=== PATIENT | male | born 1950 | race Caucasian/White ===

== ENCOUNTER 2016-10-11 10:30 | Emergency (ER) | payer MEDICARE, MEDICAID ==
[~2016-10-11] VITALS: Ht 180.3 cm; Wt 85.3 kg
[~2016-10-11 10:30] MED LIST: AMLO10TA2 PO; ASPI325T4 PO; CARV3.12 PO; HYDR12.53 PO; LISI40TA PO; METO25TA4 PO; PRED-220 PO; SIMV40TA3 PO; WARF5TAB7 PO
[2016-10-11] MEDS ORDERED: ALBUTEROL SULFATE 2.5 MG/3 ML NEBU. NEB ONE (11:15)
--- NOTE | 2016-10-11 11:19 | PHYS DOC ---
Past Medical History Past Medical History: CAD, Heart Disease, Hypertension, Stroke, Other Additional Past Medical Histor: HEP C+ Past Surgical History: Other Additional Past Surgical Histo: BYPASS X5, STENT PLACEMENT X3 Alcohol Use: Occasionally Drug Use: None Adult General Chief Complaint Chief Complaint: FLU SYMPTOM HPI HPI Patient is a 66 year old male presents emergency department stating that he's been having shortness of air difficulty breathing for the last 3-4 days. He does state when he gets up and ambulates that he does have increased shortness of air. Patient does state that he's been exposed to one of the influenza is. He denies a productive cough. He does state he has an inhaler at home which she' s been using but he thinks that it's . Patient also has a history of a blood pressure which she is not taking his medications for at least last 2-3 days. His blood pressure is elevated at the current time of 188/122. Patient denies any lower extremity edema. Patient does have a history of CABG 5. Patient is noncompliant. Review of Systems Review of Systems Constitutional: Denies fever or chills [] Eyes: Denies change in visual acuity, redness, or eye pain [] HENT: Denies nasal congestion or sore throat [] Respiratory: Cough with SOA at rest Cardiovascular: No additional information not addressed in HPI [] GI: Denies abdominal pain, nausea, vomiting, bloody stools or diarrhea [] : Denies dysuria or hematuria [] Musculoskeletal: Denies back pain or joint pain [] Integument: Denies rash or skin lesions [] Neurologic: Denies headache, focal weakness or sensory changes [] Current Medications Current Medications Current Medications Medications (Trade) Dose Ordered Sig/Macy Start Time Stop Time Status Last Admin Dose Admin Albuterol Sulfate (Ventolin Neb Soln) 2.5 mg 1X ONCE 10/11/16 11:15 10/11/16 11:16 DC 10/11/16 11:22 2.5 MG Carvedilol (Coreg) 3.125 mg 1X ONCE 10/11/16 12:15 10/11/16 12:16 DC 10/11/16 12:16 3.125 MG Furosemide (Lasix) 20 mg 1X ONCE 10/11/16 13:30 10/11/16 13:31 DC 10/11/16 13:42 20 MG Hydrochlorothiazide (Microzide) 12.5 mg 1X ONCE 10/11/16 12:15 10/11/16 12:16 DC 10/11/16 12:16 12.5 MG Allergies Allergies Allergies Coded Allergies Type Severity Reaction Last Updated Verified Interferons Allergy Intermediate PASSED OUT 03/18/15 Yes Physical Exam Physical Exam Constitutional: Well developed, well nourished, no acute distress, non-toxic appearance. [] HENT: Normocephalic, atraumatic, bilateral external ears normal, oropharynx moist, no oral exudates, nose normal. [] Eyes: PERRLA, EOMI, conjunctiva normal, no discharge. [] Neck: Normal range of motion, no tenderness, supple, no stridor. [] Cardiovascular:Heart rate regular rhythm, no murmur [] Lungs & Thorax: Bilateral breath sounds with wheezes noted in the left lower lobe Skin: Warm, dry, no erythema, no rash. [] Back: No tenderness Extremities: No tenderness, no cyanosis, no clubbing, ROM intact, no edema. [] Neurologic: Alert and oriented X 3, normal motor function, normal sensory function, no focal deficits noted. [] Psychologic: Affect normal, judgement normal, mood normal. [] Current Patient Data Vital Signs Vital Signs Date Time Temp Pulse Resp B/P Pulse Ox O2 Delivery O2 Flow Rate FiO2 10/11/16 13:30 104 20 161/89 99 Room Air 10/11/16 10:41 97.7 97.7 Lab Values Laboratory Tests Test 10/11/16 11:09 10/11/16 11:23 Influenza Type A Antigen Negative (NEGATIVE) Influenza Type B Antigen Negative (NEGATIVE) White Blood Count 6.8x10^3/uL (4.0-11.0) Red Blood Count 4.22x10^6/uL (4.30-5.70) L Hemoglobin 13.0g/dL (13.0-17.5) Hematocrit 39.7% (39.0-53.0) Mean Corpuscular Volume 94fL (79-100) Mean Corpuscular Hemoglobin 31pg (25-35) Mean Corpuscular Hemoglobin Concent 33g/dL (31-37) Red Cell Distribution Width 14.5% (11.5-14.5) Platelet Count 191x10^3/uL (140-400) Neutrophils (%) (Auto) 74% (31-73) H Lymphocytes (%) (Auto) 18% (24-48) L Monocytes (%) (Auto) 6% (0-9) Eosinophils (%) (Auto) 1% (0-3) Basophils (%) (Auto) 1% (0-3) Neutrophils # (Auto) 5.1x10^3uL (1.8-7.7) Lymphocytes # (Auto) 1.2x10^3/uL (1.0-4.8) Monocytes # (Auto) 0.4x10^3/uL (0.0-1.1) Eosinophils # (Auto) 0.1x10^3/uL (0.0-0.7) Basophils # (Auto) 0.1x10^3/uL (0.0-0.2) Sodium Level 143mmol/L (136-145) Potassium Level 3.7mmol/L (3.5-5.1) Chloride Level 108mmol/L (98-107) H Carbon Dioxide Level 24mmol/L (21-32) Anion Gap 11 (6-14) Blood Urea Nitrogen 15mg/dL (8-26) Creatinine 1.2mg/dL (0.7-1.3) Estimated GFR (Cockcroft-Gault) 61.0 BUN/Creatinine Ratio 13 (6-20) Glucose Level 145mg/dL (70-99) H Calcium Level 8.9mg/dL (8.5-10.1) Total Bilirubin 0.7mg/dL (0.2-1.0) Aspartate Amino Transferase (AST) 24U/L (15-37) Alanine Aminotransferase (ALT) 27U/L (16-63) Alkaline Phosphatase 81U/L (46-116) Troponin I Quantitative 0.051ng/mL (0.000-0.055) VB-Qnk-W-Type Natriuretic Peptide 14029zs/mL (0-124) H Total Protein 7.5g/dL (6.4-8.2) Albumin 3.6g/dL (3.4-5.0) Albumin/Globulin Ratio 0.9 (1.0-1.7) L Laboratory Tests 10/11/16 11:23 Laboratory Tests 10/11/16 11:23 EKG EKG EKG completed at 1044 with regular rhythm noted no STEMI noted Dr Wiggins[] Radiology/Procedures Radiology/Procedures [] [facility] [address] [place] [address] IMAGING REPORT Signed PATIENT: EVELYNE GRAJEDA ACCOUNT: [id number] : 1950 LOCATION: ER AGE: 66 SEX: M EXAM STATUS: REG ER ORD. PHYSICIAN: RAMESH SEYMOUR NP REASON: SOA time 3-4 days. PROCEDURE: CHEST PA & LATERAL Examination: 2 views of the chest History: History of shortness of breath Comparison: 03/17/2015 Findings: Median sternotomy wires are unchanged. Mild cardiomegaly. Small left pleural effusion is identified. Mild prominent appearing bilateral interstitial lung markings likely mild congestive changes. Impression: 1. Mild congestive changes. 2. Small left pleural effusion. DICTATED and SIGNED BY: DANIELA DAVIS MD DATE: 10/11/161218 CC: RAMESH SEYMOUR MILLING MACHINE OPERATOR; UNKNOWN PCP NAME ~ Course & Med Decision Making Course & Med Decision Making Pertinent Labs and Imaging studies reviewed. (See chart for details) Report was given to Dr. Wiggins who assumed care at 1150am with labs pending, respiratory treatment pending and cxr pending. I assumed care of this patient, his examination history are consistent with a CHF exacerbation, he states that his previous echo revealed an ejection fraction approximately 35%. Patient's chest x-ray reveals evidence of cephalization and pulmonary edema, patient's proBNP is greater than 10,000. Patient is atrial fibrillation, heart rate between the 80s to the 1 teens, is denying shortness of breath at rest, but is experiencing shortness of breath with activity. Blood pressure was elevated, patient was given his home medications, carvedilol and hydrochlorothiazide, obtained from the pharmacy. Blood pressure did improve. Patient states he's been noncompliant with medications the past 2-3 weeks, states that under no circumstances will he be willing to stay in the hospital. I discussed in detail and at length with patient at bedside along with his family, that he is exhibiting signs of decompensated heart failure, and that as it has been several years since he had a cardiac evaluation, and has been noncompliant with medications, and is not currently on any diuretics, that he would be best served by being admitted to the hospital, for diuresis and cardiac evaluation, due to the degree of his dyspnea and exertion. Patient states that he understands, but he does not want to stay, as he "hates hospitals". I discussed that he could be risking increasing morbidity or even morbidity by declining admission hospital this time. Patient voices understanding. He received an ambulatory trial in the ED, at that time oxygen saturation was in the mid 90s, heart rate again was fluctuating between the 80s to the 1 teens, patient discontinued the trial, and stated that he was ready to go home. Patient had been ambulating without difficulty, he is alert, oriented, cooperative and appropriate in his questioning and answering. He has family with him at bedside, states that she will ensure that he takes the medications as directed. He states that [place] [facility] [place] fundraising manager with whom he has followed previously, will be older do this on Thursday. Family states that they will ensure this is done. Patient states he'll return to the emergency department if his symptoms worsen. He was given a first dose of Lasix 20 mg orally in the ED, along with a blood pressure medications as stated, with improvement of his blood pressure. He was also given protrusion for Lasix, carvedilol, hydrochlorothiazide, and potassium. Along with medication precautions, instructions, and clear and detailed instructions, he then signed out AGAINST MEDICAL ADVICE and exited the emergency department with his family. [] Dragon Disclaimer Dragon Disclaimer This electronic medical record was generated, in whole or in part, using a voice recognition dictation system. Departure Disposition: AGAINST MEDICAL ADVICE Condition: STABLE Referrals: HATTIE BETH (PCP) Scripts Potassium Chloride 10 Meq Capsule.er10 Meq PO DAILY #15 TAB.SR Prov:YVROSE WIGGINS DO 10/11/16 Furosemide (Lasix)20 Mg Tablet1 Tab PO DAILY #15 TAB Ref 0 Prov:YVROSE WIGGINS DO 10/11/16 Hydrochlorothiazide (Hydrochlorothiazide Tablet)12.5 Mg Tablet1 Tab PO DAILY # 15 TAB Ref 0 Prov:YVROSE WIGGINS DO 3/4/17 Carvedilol 3.125 Mg Tablet1 Tab PO BID #30 TAB Ref 0 Prov:YVROSE WIGGINS DO 10/11/16 Departure Departure Disposition: AGAINST MEDICAL ADVICE Condition: STABLE Referrals: HATTIE BETH (PCP) Scripts Potassium Chloride 10 Meq Capsule.er10 Meq PO DAILY #15 TAB.SR Prov:YVROSE WIGGINS DO 10/11/16 Furosemide (Lasix)20 Mg Tablet1 Tab PO DAILY #15 TAB Ref 0 Prov:YVROSE WIGGINS DO 10/11/16 Hydrochlorothiazide (Hydrochlorothiazide Tablet)12.5 Mg Tablet1 Tab PO DAILY # 15 TAB Ref 0 Prov:YVROSE WIGGINS DO 10/11/16 Carvedilol 3.125 Mg Tablet1 Tab PO BID #30 TAB Ref 0 Prov:FELICIANOYOMI ZAFARIN Mandi DO 10/11/16 RAMESH SEYMOUR NP Oct 11, 2016 11:19 YVROSE WIGGINS DO Oct 11, 2016 16:36
[2016-10-11 11:30] LABS: BASO # 0.1 x10^3/uL (0.0-0.2); BASO % 1 % (0-3); EOS % 1 % (0-3); HEMATOCRIT 39.7 % (39.0-53.0); LYMPH # 1.2 x10^3/uL (1.0-4.8); LYMPH % 18 % (24-48); MEAN CORPUSCULAR HEMOGLOBIN 31 pg (25-35); MEAN CORPUSCULAR HGB CONC 33 g/dL (31-37); MEAN CORPUSCULAR VOLUME 94 fL (79-100); MONO % 6 % (0-9); NEUT % 74 % (31-73); PLATELET COUNT 191 x10^3/uL (140-400); RED BLOOD COUNT 4.22 x10^6/uL (4.30-5.70); RED CELL DISTRIBUTION WIDTH 14.5 % (11.5-14.5); WHITE BLOOD COUNT 6.8 x10^3/uL (4.0-11.0)
[2016-10-11 11:38] LABS: OBC FLU VALID
[2016-10-11 11:42] LABS: CALCIUM 8.9 mg/dL (8.5-10.1); CREATININE 1.2 mg/dL (0.7-1.3); POTASSIUM 3.7 mmol/L (3.5-5.1)
--- NOTE | 2016-10-11 11:42 | EKG ---
[facility] [address] [place] [address] Test Date: 2016-10-11 Test Time: 10:44:13 Pat Name: EVELYNE GRAJEDA Department: Room: Gender: M Car Rental Agent: : 1950 Requested By: RAMESH SEYMOUR Order Number: [id number] Reading MD: Blair Gutierrez Measurements Intervals [place] Rate: 106 P: [place]: QRS: -5 QRSD: 102 T: 108 QT: 370 QTc: 493 Interpretive Statements SINUS RHYTHM, FREQUENT PACS AND ATRIAL TRIPLETS VENTRICULAR PREMATURE COMPLEX(ES) LEFTWARD AXIS R-S TRANSITION ZONE IN V LEADS DISPLACED TO THE LEFT CONSIDER LEFT VENTRICULAR HYPERTROPHY T ABNORMALITY IN HIGH LATERAL LEADS RI6.01 Unconfirmed report Electronically Signed On 10-12-2016 9:42:25 NEWS REEL CAMERAMAN by Blair Gutierrez
[2016-10-11 11:48] LABS: ALBUMIN 3.6 g/dL (3.4-5.0); ALBUMIN/GLOBULIN RATIO 0.9 (1.0-1.7); TOTAL BILIRUBIN 0.7 mg/dL (0.2-1.0); TOTAL PROTEIN 7.5 g/dL (6.4-8.2)
[2016-10-11] MEDS ORDERED: AMLO10TA2 PO (11:59)
[2016-10-11] MEDS ORDERED: ATOR10TA60 PO (11:59)
[2016-10-11] MEDS ORDERED: CARVEDILOL 3.125 MG TABLET PO ONE (12:15)
[2016-10-11] MEDS ORDERED: HYDROCHLOROTHIAZIDE 12.5 MG CAPSULE. PO ONE (12:15)
--- NOTE | 2016-10-11 12:23 | RAD ---
Examination: 2 views of the chest History: History of shortness of breath Comparison: 03/17/2015 Findings: Median sternotomy wires are unchanged. Mild cardiomegaly. Small left pleural effusion is identified. Mild prominent appearing bilateral interstitial lung markings likely mild congestive changes. Impression: 1. Mild congestive changes. 2. Small left pleural effusion.
[2016-10-11 13:30] VITALS: BP 161/89
[2016-10-11] MEDS ORDERED: FUROSEMIDE 40 MG TABLET PO ONE (13:30)
[2016-10-11] MEDS ORDERED: POTA10CA PO (13:37)
[2016-10-11] MEDS ORDERED: FURO-69 PO (13:37)
[2016-10-11] MEDS ORDERED: HYDR12.58 PO (13:37)
[2016-10-11] MEDS ORDERED: CARV3.122 PO (13:37)
== END 2016-10-11 13:54 | disposition left against medical advice (07) ==
LOC: ER 10:30
DX: R06.2 Wheezing (principal); J90 Pleural effusion, not elsewhere classified; Z91.14 Patient's other noncompliance with medication regimen; R06.02 Shortness of breath; R05 Cough; R06.00 Dyspnea, unspecified; I48.91 Unspecified atrial fibrillation; I11.9 Hypertensive heart disease without heart failure; I25.10 Atherosclerotic heart disease of native coronary artery without angina pectoris; Z86.73 Personal history of transient ischemic attack (TIA), and cerebral infarction without residual deficits; Z95.1 Presence of aortocoronary bypass graft; Z86.19 Personal history of other infectious and parasitic diseases; Z88.8 Allergy status to other drugs, medicaments and biological substances
CPT/HCPCS: 36415; 71020; 80053; 83880; 84484; 85027; 87804; 93005; 94640; 99285-25

== ENCOUNTER 2018-11-02 14:01 | Emergency (ER) | payer MEDICARE, MEDICAID ==
[~2018-11-02] VITALS: Ht 180.3 cm; Wt 82.8 kg
[~2018-11-02 14:01] MED LIST changes: -AMLO10TA2 PO; +AMLO10TA8 PO; -ASPI325T4 PO; +ASPI325T8 PO; +ATOR10TA60 PO; +CARV3.1210 PO; +FURO-69 PO; -HYDR12.53 PO; +HYDR12.575 PO; +HYDR12.58 PO; +LISI-130 PO; -LISI40TA PO; +POTA10TA12 PO; +WARF-31 PO; -WARF5TAB7 PO
[2018-11-02] MEDS ORDERED: ALBUTEROL SULFATE 2.5 MG/3 ML NEBU. NEB ONE (14:45)
[2018-11-02] MEDS ORDERED: predniSONE 10 MG TABLET PO ONE (14:45)
--- NOTE | 2018-11-02 15:09 | RAD ---
Chest radiograph 11/02/2018 2:47 PM INDICATION: Shortness of air, coughing COMPARISON: October 11, 2016 TECHNIQUE: Frontal and lateral views of the chest are provided. FINDINGS: The cardiomediastinal silhouette is enlarged, stable. Median sternotomy changes are present. There is subtle increased patchy density within the right middle lobe. No pleural effusions. No pulmonary vascular congestion or pneumothorax. Mild bronchial wall thickening as may be seen with bronchitis. IMPRESSION: Suspect bronchitis with patchy density in the right middle lobe suspicious for pulmonary infiltrate. Electronically signed by: Digna Bautista MD (11/02/2018 3:07 PM) [facility]
[2018-11-02 15:28] LABS: BASO # 0.1 x10^3/uL (0.0-0.2); BASO % 1 % (0-3); EOS % 0 % (0-3); HEMATOCRIT 41.2 % (39.0-53.0); HEMOGLOBIN 13.8 g/dL (13.0-17.5); LYMPH # 1.5 x10^3/uL (1.0-4.8); LYMPH % 13 % (24-48); MEAN CORPUSCULAR HEMOGLOBIN 31 pg (25-35); MEAN CORPUSCULAR HGB CONC 34 g/dL (31-37); MEAN CORPUSCULAR VOLUME 93 fL (79-100); MONO # 0.8 x10^3/uL (0.0-1.1); MONO % 7 % (0-9); NEUT % 79 % (31-73); PLATELET COUNT 198 x10^3/uL (140-400); RED BLOOD COUNT 4.41 x10^6/uL (4.30-5.70); RED CELL DISTRIBUTION WIDTH 14.7 % (11.5-14.5); WHITE BLOOD COUNT 11.4 x10^3/uL (4.0-11.0)
[2018-11-02 15:42] LABS: CALCIUM 8.9 mg/dL (8.5-10.1); CREATININE 1.3 mg/dL (0.7-1.3); GFR 55.2; POTASSIUM 3.8 mmol/L (3.5-5.1)
[2018-11-02 15:46] LABS: ALBUMIN 3.7 g/dL (3.4-5.0); ALBUMIN/GLOBULIN RATIO 0.8 (1.0-1.7); TOTAL BILIRUBIN 1.6 mg/dL (0.2-1.0); TOTAL PROTEIN 8.2 g/dL (6.4-8.2)
[2018-11-02 15:49] VITALS: BP 204/100
[2018-11-02] MEDS ORDERED: PRED50TA PO (16:18)
[2018-11-02] MEDS ORDERED: AZIT250T PO (16:18)
--- NOTE | 2018-11-02 16:19 | PHYS DOC ---
Past Medical History Past Medical History: CAD, COPD, CVA, High Cholesterol, Heart Disease, Hypertension, Hepatitis, [place], Stroke, Other Additional Past Medical Histor: HEP C+, PSORIASIS Past Surgical History: Appendectomy, Coronary Bypass Surgery, Other Additional Past Surgical Histo: BYPASS X5, STENT PLACEMENT X3, hernia surgery Additional Information: 1PPD Alcohol Use: Sober Additional Information: SOBER X 3 YEARS Drug Use: None Adult General Chief Complaint Chief Complaint: Congestion HPI HPI Patient is a 68 year old male who presents with shortness of air, coughing and fatigue. The patient does have a positive history of COPD. His daughter states that he has been worsening over the past few days. He denies diaphoresis, chest pain, body aches or fever. He has been using his at home inhaler with little relief. Review of Systems Review of Systems Constitutional: Denies fever or chills [] Eyes: Denies change in visual acuity, redness, or eye pain [] HENT: Denies nasal congestion or sore throat [] Respiratory: See history of present illness Cardiovascular: No additional information not addressed in HPI [] GI: Denies abdominal pain, nausea, vomiting, bloody stools or diarrhea [] : Denies dysuria or hematuria [] Musculoskeletal: Denies back pain or joint pain [] Integument: Denies rash or skin lesions [] Neurologic: Denies headache, focal weakness or sensory changes [] Endocrine: Denies polyuria or polydipsia [] All other systems were reviewed and found to be within normal limits, except as documented in this note. Current Medications Current Medications Current Medications Medications (Trade) Dose Ordered Sig/Macy Start Time Stop Time Status Last Admin Dose Admin Albuterol Sulfate (Ventolin Neb Soln) 2.5 mg 1X ONCE 11/02/18 14:45 11/02/18 14:47 DC 11/02/18 15:17 2.5 MG Prednisone (Prednisone) 50 mg 1X ONCE 11/02/18 14:45 11/02/18 14:47 DC 11/02/18 15:19 50 MG Allergies Allergies Allergies Coded Allergies Type Severity Reaction Last Updated Verified Interferons Allergy Intermediate PASSED OUT 03/18/15 Yes Physical Exam Physical Exam Constitutional: Well developed, well nourished, no acute distress, non-toxic appearance. [] HENT: Normocephalic, atraumatic, bilateral external ears normal, oropharynx moist, no oral exudates, nose normal. [] Eyes: PERRLA, EOMI, conjunctiva normal, no discharge. [] Neck: Normal range of motion, no tenderness, supple, no stridor. [] Cardiovascular:Heart rate regular rhythm, no murmur [] Lungs & Thorax: Bilateral breath sounds decreased bilaterally Abdomen: Bowel sounds normal, soft, no tenderness, no masses, no pulsatile masses. [] Skin: Warm, dry, no erythema, no rash. [] Back: No tenderness, no CVA tenderness. [] Extremities: No tenderness, no cyanosis, no clubbing, ROM intact, no edema. [] Neurologic: Alert and oriented X 3, normal motor function, normal sensory function, no focal deficits noted. [] Psychologic: Affect normal, judgement normal, mood normal. [] Current Patient Data Vital Signs Vital Signs Date Time Temp Pulse Resp B/P (MAP) Pulse Ox O2 Delivery O2 Flow Rate FiO2 11/02/18 15:49 112 204/100 (134) 99 Room Air 11/02/18 15:35 26 11/02/18 14:31 98.3 98.3 Lab Values Laboratory Tests Test 11/02/18 15:10 11/02/18 15:37 White Blood Count 11.4 x10^3/uL (4.0-11.0) H Red Blood Count 4.41 x10^6/uL (4.30-5.70) Hemoglobin 13.8 g/dL (13.0-17.5) Hematocrit 41.2 % (39.0-53.0) Mean Corpuscular Volume 93 fL (79-100) Mean Corpuscular Hemoglobin 31 pg (25-35) Mean Corpuscular Hemoglobin Concent 34 g/dL (31-37) Red Cell Distribution Width 14.7 % (11.5-14.5) H Platelet Count 198 x10^3/uL (140-400) Neutrophils (%) (Auto) 79 % (31-73) H Lymphocytes (%) (Auto) 13 % (24-48) L Monocytes (%) (Auto) 7 % (0-9) Eosinophils (%) (Auto) 0 % (0-3) Basophils (%) (Auto) 1 % (0-3) Neutrophils # (Auto) 9.0 x10^3uL (1.8-7.7) H Lymphocytes # (Auto) 1.5 x10^3/uL (1.0-4.8) Monocytes # (Auto) 0.8 x10^3/uL (0.0-1.1) Eosinophils # (Auto) 0.0 x10^3/uL (0.0-0.7) Basophils # (Auto) 0.1 x10^3/uL (0.0-0.2) Sodium Level 141 mmol/L (136-145) Potassium Level 3.8 mmol/L (3.5-5.1) Chloride Level 104 mmol/L (98-107) Carbon Dioxide Level 28 mmol/L (21-32) Anion Gap 9 (6-14) Blood Urea Nitrogen 14 mg/dL (8-26) Creatinine 1.3 mg/dL (0.7-1.3) Estimated GFR (Cockcroft-Gault) 55.2 BUN/Creatinine Ratio 11 (6-20) Glucose Level 104 mg/dL (70-99) H Calcium Level 8.9 mg/dL (8.5-10.1) Total Bilirubin 1.6 mg/dL (0.2-1.0) H Aspartate Amino Transferase (AST) 17 U/L (15-37) Alanine Aminotransferase (ALT) 20 U/L (16-63) Alkaline Phosphatase 69 U/L (46-116) Total Protein 8.2 g/dL (6.4-8.2) Albumin 3.7 g/dL (3.4-5.0) Albumin/Globulin Ratio 0.8 (1.0-1.7) L Lactic Acid Level 1.0 mmol/L (0.4-2.0) Laboratory Tests 11/02/18 15:10 Laboratory Tests 11/02/18 15:10 Microbiology 11/02/18 Blood Culture - Preliminary, Resulted NO GROWTH AFTER 3 DAYS EKG EKG [] Radiology/Procedures Radiology/Procedures []PATIENT: EVELYNE GRAJEDAACCOUNT: [id number]#: [id number] : 1950 LOCATION: ER AGE: 68 SEX: M EXAM STATUS: REG ER ORD. PHYSICIAN: GRINT,TBA M UMBRELLA TIPPER HAND REASON: soa, coughing PROCEDURE: CHEST PA & LATERAL Chest radiograph 11/02/2018 2:47 PM INDICATION: Shortness of air, coughing COMPARISON: October 11, 2016 TECHNIQUE: Frontal and lateral views of the chest are provided. FINDINGS: The cardiomediastinal silhouette is enlarged, stable. Median sternotomy changes are present. There is subtle increased patchy density within the right middle lobe. No pleural effusions. No pulmonary vascular congestion or pneumothorax. Mild bronchial wall thickening as may be seen with bronchitis. IMPRESSION: Suspect bronchitis with patchy density in the right middle lobe suspicious for pulmonary infiltrate. Electronically signed by: Ry Bautista MD (11/02/2018 3:07 PM) [facility] DICTATED and SIGNED BY: RY BAUTISTA MD DATE: 11/02/18 5585 Course & Med Decision Making Course & Med Decision Making Pertinent Labs and Imaging studies reviewed. (See chart for details) []The patient was given prednisone and an albuterol nebulizer treatment in the emergency department. He states that he feels much better following the treatment. Dragon Disclaimer Dragon Disclaimer This electronic medical record was generated, in whole or in part, using a voice recognition dictation system. Departure Departure Impression: Primary Impression: Pneumonia Disposition: 01 HOME, SELF-CARE Condition: STABLE Referrals: NO PCP (PCP) Patient Instructions: Pneumonia, Adult Additional Instructions: Take the medication as directed. Follow-up with your primary care provider in 3 days if not improving or return to the emergency department immediately if worsening. Scripts Azithromycin (ZITHROMAX) 250 Mg Tablet 1 PKG PO UD for pneumonia, #1 PKG Prov: TAB MENDOZA UMBRELLA TIPPER HAND 11/02/18 Prednisone (PREDNISONE) 50 Mg Tablet 1 TAB PO DAILY for pneumonia, #5 TAB Prov: TAB MENDOZA UMBRELLA TIPPER HAND 11/02/18 TAB MENDOZA APRN Nov 02, 2018 16:19
--- NOTE | 2018-11-03 04:17 | EKG ---
[facility] [address] [place] [address] Test Date: 2018-11-02 Test Time: 14:53:01 Pat Name: EVELYNE GRAJEDA Department: Room: Gender: M Medical Receptionist Medical Assistant: : 1950 Requested By: TAB MENDOZA Order Number: [id number] Reading MD: Jon Todd MD Measurements Intervals [place] Rate: 93 P: 3 SC: 190 QRS: -12 QRSD: 104 T: 126 QT: 334 QTc: 418 Interpretive Statements SINUS RHYTHM ATRIAL PREMATURE COMPLEX(ES) LEFTWARD AXIS LVH WITH REPOLARIZATION ABNORMALITY Electronically Signed On 11-04-2018 14:42:04 CDT by Jon Todd MD
== END 2018-11-02 16:28 | disposition home or self-care (01) ==
LOC: ER 14:01
DX: J18.9 Pneumonia, unspecified organism (principal); R53.83 Other fatigue; J44.9 Chronic obstructive pulmonary disease, unspecified; E78.00 Pure hypercholesterolemia, unspecified; I11.9 Hypertensive heart disease without heart failure; F17.200 Nicotine dependence, unspecified, uncomplicated; I25.10 Atherosclerotic heart disease of native coronary artery without angina pectoris; I25.2 Old myocardial infarction; Z86.73 Personal history of transient ischemic attack (TIA), and cerebral infarction without residual deficits; Z90.89 Acquired absence of other organs; Z95.1 Presence of aortocoronary bypass graft
CPT/HCPCS: 36415; 71046; 80053; 83605; 85025; 87040; 93005; 94640; 99284; J7512; J7613

== ENCOUNTER 2019-03-22 07:21 | Day surgery (SDC) | payer MEDICARE, MEDICAID ==
[~2019-03-22] VITALS: Ht 180.3 cm; Wt 81.6 kg
[~2019-03-22 07:21] MED LIST changes: +ASPI-630 PO; +AZIT250T PO; +CLOP75TA PO; +HYDROmorphone 2 MG/ML VIAL IV PRN; +IOHEXOL 300 MG/ML 50 ML VIAL. ONE; +IV RINGERS,LACTATED 1000ML 1,000 ML IV SCH; +LIDOCAINE 2% JELLY 6ML IN APPLICATOR. ONE; +MORPHINE SULFATE 2 MG/ML VIAL. IV PRN; +ONDANSETRON PF 4 MG/2 ML VIAL. IV PRN; +PRED50TA PO; +PROCHLORPERAZINE 10 MG/2 ML VIAL. IV PRN; +VENTOLIN HFA18 GM INH; +fentaNYL PF VIAL 100 MCG/2 ML VIAL IV PRN
[2019-03-22] MEDS ORDERED: PROPOFOL 0 ML IV ONE (08:43)
[2019-03-22] MEDS ORDERED: DEXAMETHASONE SOD PHOS 4 MG/ML VIAL ONE (08:43)
[2019-03-22] MEDS ORDERED: MIDAZOLAM HCL/PF 2 MG/2 ML VIAL. ONE (08:43)
[2019-03-22] MEDS ORDERED: fentaNYL PF VIAL 100 MCG/2 ML VIAL ONE ×2 (08:43→09:59)
[2019-03-22] MEDS ORDERED: ONDANSETRON PF 4 MG/2 ML VIAL. ONE (08:43)
[2019-03-22] MEDS ORDERED: LIDOCAINE 2% PF 5 ML VIAL. ONE (08:43)
[2019-03-22 08:46] LABS: BASO % 1 % (0-3); EOS # 0.1 x10^3/uL (0.0-0.7); EOS % 2 % (0-3); HEMATOCRIT 36.6 % (39.0-53.0); HEMOGLOBIN 12.7 g/dL (13.0-17.5); LYMPH % 33 % (24-48); MEAN CORPUSCULAR HEMOGLOBIN 33 pg (25-35); MEAN CORPUSCULAR HGB CONC 35 g/dL (31-37); MEAN CORPUSCULAR VOLUME 94 fL (79-100); MONO # 0.4 x10^3/uL (0.0-1.1); MONO % 7 % (0-9); NEUT # 3.4 x10^3/uL (1.8-7.7); NEUT % 57 % (31-73); PLATELET COUNT 158 x10^3/uL (140-400); RED BLOOD COUNT 3.92 x10^6/uL (4.30-5.70); RED CELL DISTRIBUTION WIDTH 14.7 % (11.5-14.5)
[2019-03-22 08:54] LABS: CALCIUM 8.6 mg/dL (8.5-10.1); CREATININE 1.4 mg/dL (0.7-1.3); GFR 50.7; POTASSIUM 3.3 mmol/L (3.5-5.1)
[2019-03-22] MEDS ORDERED: ETOMIDATE 20 MG/10 ML VIAL. IV ONE ×2 (08:56→09:30)
[2019-03-22] MEDS ORDERED: PHENYLEPHRINE in 0.9% NACL PF 1 MG/10 ML SYRINGE. IV ONE (09:30)
[2019-03-22] MEDS ORDERED: ePHEDrine PF IN SALINE 50 MG/10 ML SYRINGE. IV ONE (09:30)
[2019-03-22] MEDS ORDERED: ISOFLURANE 31 TO 60 MINUTES. IH ONE (09:30)
--- NOTE | 2019-03-22 09:38 | PDOC4 ---
OPERATIVE NOTE Date: Date: Mar 22, 2019 Pre-Op Diagnosis: Rt Uret calc Post-Op Diagnosis: same Procedure Performed: cysto, R RPG, placement of R ureteral stent Surgeon: Juan M Anesthesia Type: Gen Blood Loss: min Specimans Obtained: none Findings: mild bulb stx; enlarged but not obstructing prostate that was palpable benign, bladder showed mild trabec; UO's nl; RPG on Right showed near complete obstruction by a stone at the bottom border of S-I joint Complications: none Operative Note: Gen Anes Pt placed in lithotomy pos'n IV abx admin Pt prepped and draped in usual fashion Cysto performed w 21-Fr cystoscope. Findings as above. RPG performed with fluoro. A Zip-wire was placed under fluoro. This required mod manipulation at site of stone. A 26cm Percuflex stent was then placed over the wire in usual fashion. The stent coiled in good ps'n proximally ad distally upon removal of wire. The bladder was emptied and scope removed. MEL was performed and was unrem. The patient was then awakened and transferred to . Disp: home after RR. Will be followed per office. Will need ureteroscopy when he can be taken off some of his anti-platelet medications. Hopefully the stent will auro-dilate the ureter enough to make the stone removal easier. He will need laser for stone removal. ARIC CALLAHAN MD Mar 22, 2019 09:38
[2019-03-22] MEDS ORDERED: HYDROcodone/APAP 5/325MG 1 TAB TABLET ONE (10:11)
[2019-03-22] MEDS ORDERED: HYDROcodone/APAP 5/325MG 1 TAB TABLET PO ONE (10:15)
[2019-03-22] MEDS ORDERED: HYDR-2761 PO (10:22)
[2019-03-22 10:35] VITALS: BP 148/72
== END 2019-03-22 10:55 | disposition home or self-care (01) ==
LOC: SURG 07:21
PROVIDERS: ATTEND Urology
DX: N20.1 Calculus of ureter (principal)
CPT/HCPCS: 36415; 52332; 76000; 80048; 85025; J0171; J0690; J1100; J2001; J2250; J2370; J2405; J3010; Q9967; A7015; C1769; C2617; J2704; J7120

== ENCOUNTER → 2019-04-26 | Day surgery (SDC) | payer MEDICAID, MEDICARE ==
[~2019-04-26] VITALS: Ht 180.3 cm; Wt 81.6 kg
[~2019-04-26] MED LIST changes: +0.9 % SODIUM CHLORIDE 10 ML DISP.SYRIN. IV PRN; +DEXAMETHASONE SOD PHOS 4 MG/ML VIAL ONE; +ESMOLOL 100 MG/10 ML VIAL. IVP ONE; +ETOMIDATE 20 MG/10 ML VIAL. IV ONE; +HYDR-2761 PO; +IBUP100T PO; +ISOFLURANE 61 TO 120 MINUTES. IH ONE; +IV DEXTROSE 5 %-0.45 % NACL 1,000 ML IV SCH; +LIDOCAINE 2% PF 5 ML VIAL. ONE; +NALOXONE 0.4 MG/ML VIAL. IV PRN; +ONDANSETRON PF 4 MG/2 ML VIAL. ONE; +PHENYLEPHRINE in 0.9% NACL PF 1 MG/10 ML SYRINGE. IV ONE; +PROPOFOL 20 ML IV ONE; +ceFAZolin 2GM PREMIX 2 GM/50 ML BAG IV ONE; +fentaNYL PF VIAL 100 MCG/2 ML VIAL ONE
--- NOTE | 2019-04-26 09:56 | PDOC4 ---
OPERATIVE NOTE Date: Date: Apr 26, 2019 Pre-Op Diagnosis: R hydro, R prox ureteral calculus Post-Op Diagnosis: R hydro; no stone identified Procedure Performed: cysto, removal stent, R ureterorenoscopy, stent re-insertion w string Surgeon: Juan M Anesthesia Type: Gen Blood Loss: min Specimans Obtained: none Findings: CAtheter rxn of bladder, inflammation of R ureter, R caliectasis with no stone identified byeither rigid or flexible ureterorenoscopy Complications: none Operative Note: With patient under GA and in lithotomy position, pt was admin'd abx, prepped and draped in usual fashion Cysto was performed w 21 Fr cystoscope and stent was removed. A guidewire was placed under fluoroscopic cx. The rigid 6.9 Fr scope was then used to examine the patients ureter. There was mild narrowing at the level of the mid S-I joint which required a second wire before the scope could be passed without excessive traction of the ureter. The proximl ureter was examined and there was no stone. There was a moderate amount of debris but no stone. Despite complete relaxation of the patient, the scope would not reach the UPJ. The flexible scope was then used after removal of the rigid scope. The flexible scope was placed over the guidewire into the renal pelvis and the wire was removed. The calyces were examined and there was mod debris but no stone identified. After complete exam of the collecting system and seeing no stone or cause of obstruction, the ureteroscope was removed after re-inserting the guidewire. The 21-Fr scope was then re-intoduced and the 6 x 26 Polaris stent w string was passed over the wire under fluoro control. The pusher was removed and the bladder was emptied and scope removed. The string was taped to the penis. Final fluoro revealed the stent in good pos'n. Disp: home after RR; return for stent removal in 5 days Rx's ARIC Stover MD Apr 26, 2019 09:56
[2019-04-26 10:30] VITALS: BP 178/92
== END ==
LOC: SURG 06:46
PROVIDERS: ATTEND Urology
DX: N20.1 Calculus of ureter (principal); N40.1 Benign prostatic hyperplasia with lower urinary tract symptoms; I25.2 Old myocardial infarction
CPT/HCPCS: 52332; 76000; A7015; C1769; C2617; J0696; J1100; J2001; J2370; J2405; J2704; J3010; J3490; Q9967

== ENCOUNTER 2019-10-19 20:59 | Emergency (ER) | payer MEDICARE, MEDICAID ==
[~2019-10-19] VITALS: Ht 180.3 cm; Wt 80.0 kg
[~2019-10-19 20:59] MED LIST changes: -0.9 % SODIUM CHLORIDE 10 ML DISP.SYRIN. IV PRN; +ALBU2.5V8 IH; +BENZ100C PO; -DEXAMETHASONE SOD PHOS 4 MG/ML VIAL ONE; +DOXY100T PO; -ESMOLOL 100 MG/10 ML VIAL. IVP ONE; -ETOMIDATE 20 MG/10 ML VIAL. IV ONE; -HYDROmorphone 2 MG/ML VIAL IV PRN; -IOHEXOL 300 MG/ML 50 ML VIAL. ONE; -ISOFLURANE 61 TO 120 MINUTES. IH ONE; -IV DEXTROSE 5 %-0.45 % NACL 1,000 ML IV SCH; -IV RINGERS,LACTATED 1000ML 1,000 ML IV SCH; -LIDOCAINE 2% JELLY 6ML IN APPLICATOR. ONE; -LIDOCAINE 2% PF 5 ML VIAL. ONE; -MORPHINE SULFATE 2 MG/ML VIAL. IV PRN; -NALOXONE 0.4 MG/ML VIAL. IV PRN; -ONDANSETRON PF 4 MG/2 ML VIAL. IV PRN; -ONDANSETRON PF 4 MG/2 ML VIAL. ONE; -PHENYLEPHRINE in 0.9% NACL PF 1 MG/10 ML SYRINGE. IV ONE; -PROCHLORPERAZINE 10 MG/2 ML VIAL. IV PRN; -PROPOFOL 20 ML IV ONE; +SIMV40TA18 PO; -SIMV40TA3 PO; -ceFAZolin 2GM PREMIX 2 GM/50 ML BAG IV ONE; -fentaNYL PF VIAL 100 MCG/2 ML VIAL IV PRN; -fentaNYL PF VIAL 100 MCG/2 ML VIAL ONE
[2019-10-19] MEDS ORDERED: AZIT250T PO (22:07)
[2019-10-19] MEDS ORDERED: HYDR25TA PO (22:07)
[2019-10-19] MEDS ORDERED: METH4TAB2 PO (22:07)
--- NOTE | 2019-10-19 22:07 | PHYS DOC ---
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 Patient states he was seen in this emergency room on October 12 and diagnosed with pneumonia and treated with Tessalon, doxycycline, prednisone and albuterol inhaler. Patient had albuterol inhaler and prednisone previously without problem. Patient states he had bilateral hand redness and itching and needle sticking feeling for the last couple days and today had redness and itching in preauricular area. Patient denies shortness of breath, fever and chills, throat swelling and problems swallowing. Patient denies history of allergic reaction. Review of Systems Review of Systems Constitutional: Denies fever or chills [] Eyes: Denies change in visual acuity, redness, or eye pain [] HENT: Denies nasal congestion or sore throat [] Respiratory: Denies cough or shortness of breath [] Cardiovascular: No additional information not addressed in HPI [] GI: Denies abdominal pain, nausea, vomiting, bloody stools or diarrhea [] : Denies dysuria or hematuria [] Musculoskeletal: Denies back pain or joint pain [] Integument: Reports rash Neurologic: Denies headache, focal weakness or sensory changes [] Endocrine: Denies polyuria or polydipsia [] All other systems were reviewed and found to be within normal limits, except as documented in this note. Current Medications Current Medications Current Medications Medications (Trade) Dose Ordered Sig/Macy Start Time Stop Time Status Last Admin Dose Admin Diphenhydramine HCl (Benadryl) 50 mg 1X ONCE 10/19/19 22:15 10/19/19 22:16 DC 10/19/19 22:22 50 MG Famotidine (Pepcid) 20 mg 1X ONCE 10/19/19 22:15 10/19/19 22:16 DC 10/19/19 22:22 20 MG Allergies Allergies Allergies Coded Allergies Type Severity Reaction Last Updated Verified Interferons Allergy Intermediate PASSED OUT 04/26/19 Yes Physical Exam Physical Exam Constitutional: Well developed, well nourished, mild distress, non-toxic appearance. [] HENT: Normocephalic, atraumatic. Eyes: PERRLA, EOMI, conjunctiva normal, no discharge. [] Neck: Normal range of motion, no tenderness, supple, no stridor. [] Cardiovascular:Heart rate regular rhythm, no murmur [] Lungs & Thorax: Bilateral breath sounds clear to auscultation [] Skin: Warm, dry, erythema of bilateral dorsal sides of hands, left periauricular erythema and pruritus Back: No tenderness, no CVA tenderness. [] Extremities: No tenderness, no cyanosis, no clubbing, ROM intact, no edema. [] Neurologic: Alert and oriented X 3, no focal deficits noted. [] Psychologic: Affect normal, judgement normal, mood normal. [] Current Patient Data Vital Signs Vital Signs Date Time Temp Pulse Resp B/P (MAP) Pulse Ox O2 Delivery O2 Flow Rate FiO2 10/19/19 22:22 63 18 155/80 (105) 99 Room Air 10/19/19 21:41 97.5 97.5 EKG EKG [] Radiology/Procedures Radiology/Procedures [] Course & Med Decision Making Course & Med Decision Making Evaluation of patient he is to 69-year-old male patient with possible allergic reaction to doxycycline. Patient was advised to stop doxycycline and prescription for Zithromax was given. Patient treated with IM Benadryl and p.o. Pepcid in ER and felt better. Prescription for Medrol Dosepak and hydroxyzine was given. I've spoken with the patient and/or caregivers. I've explained the patient's condition, diagnosis and treatment plan based on information available to me at this time. I've answered the patient's and/or caregivers questions and addressed any concerns. The patient and/or caregivers have a good understanding the patient's diagnosis, condition and treatment plan as can be expected at this point. Vital signs have been stabilized. The patient's condition is stable for discharge from the emergency department. The patient will pursue further outpatient evaluation with her primary care provider or other designated consulting physician as outlined in the discharge instructions. Patient and/or caregivers are agreeable to this plan of care and follow-up instructions have been explained in detail. The patient and/or care givers have received these instructions in written format and expressed understanding of these discharge instructions. The patient and her caregivers are aware that if any significant change in condition or worsening of symptoms should prompt him to immediately return to this of the closest emergency department. If an emergent department is not readily available I would encourage him to call 911. Mary Disclaimer Mary Disclaimer This electronic medical record was generated, in whole or in part, using a voice recognition dictation system. Departure Departure Impression: Primary Impression: Allergic reaction caused by a drug Disposition: HOME, SELF-CARE (At 2220) Condition: STABLE Referrals: NO PCP (PCP) Patient Instructions: Drug Allergy Additional Instructions: Stop taking doxycycline Follow-up with your primary care physician in 3-5 days Return to ER if not getting better Thank you for visiting [facility]. We appreciate you trusting us with your care. If any additional problems come up don't hesitate to return to visit us. Please follow up with your primary care provider so they can plan additional care if needed and know about the problem that you had. If symptoms worsen come back to the Emergency Department. Any concerning symptoms that start such as chest pain, shortness of air, weakness or numbness on one side of the body, running high fevers or any other concerning symptoms return to the ER. Scripts Hydroxyzine Hcl (HYDROXYZINE HCL) 25 Mg Tablet 1 TAB PO TID PRN for itching, #30 TAB Prov: SHERLEY CASTRO MD 10/19/19 Azithromycin (ZITHROMAX) 250 Mg Tablet 250 MG PO as directed for ANTI-BIOTIC, #6 TAB 0 Refills Take 2 PO x 1 days Then take 1 PO q 24 hour for the next 4 days Prov: SHERLEY CASTRO MD 10/19/19 Methylprednisolone (MEDROL) 4 Mg Tab.ds.pk 1 PKG PO UD for inflammation, #1 PKG Prov: SHERLEY CASTRO MD 10/19/19 Problem Qualifiers Primary Impression: Allergic reaction caused by a drug Encounter type: initial encounter Qualified Codes: T78.40XA - Allergy, unspecified, initial encounter SHERLEY CASTRO MD Oct 19, 2019 22:07
[2019-10-19] MEDS ORDERED: diphenhydrAMINE 50 MG/ML VIAL IM ONE (22:15)
[2019-10-19] MEDS ORDERED: FAMOTIDINE 20 MG TABLET. PO ONE (22:15)
[2019-10-19 22:22] VITALS: BP 155/80
== END 2019-10-19 22:35 | disposition home or self-care (01) ==
LOC: ER 20:59
DX: T36.4X5A Adverse effect of tetracyclines, initial encounter (principal); E78.00 Pure hypercholesterolemia, unspecified; I11.9 Hypertensive heart disease without heart failure; I25.2 Old myocardial infarction; J44.9 Chronic obstructive pulmonary disease, unspecified; F17.200 Nicotine dependence, unspecified, uncomplicated; I25.10 Atherosclerotic heart disease of native coronary artery without angina pectoris; Z86.73 Personal history of transient ischemic attack (TIA), and cerebral infarction without residual deficits; Z95.1 Presence of aortocoronary bypass graft; Z95.5 Presence of coronary angioplasty implant and graft; Z88.8 Allergy status to other drugs, medicaments and biological substances; Y92.89 Other specified places as the place of occurrence of the external cause
CPT/HCPCS: 96372; 99283; J1200

== ENCOUNTER 2020-03-22 17:42 | Emergency (ER) | payer MEDICARE, MEDICAID ==
[~2020-03-22] VITALS: Ht 182.9 cm; Wt 75.1 kg
[~2020-03-22 17:42] MED LIST changes: +HYDR25TA PO; +METH4TAB2 PO
[2020-03-22 18:26] LABS: BASO % 0 % (0-3); EOS # 0.1 x10^3/uL (0.0-0.7); EOS % 1 % (0-3); HEMATOCRIT 43.4 % (39.0-53.0); HEMOGLOBIN 15.1 g/dL (13.0-17.5); LYMPH # 1.1 x10^3/uL (1.0-4.8); LYMPH % 15 % (24-48); MEAN CORPUSCULAR HEMOGLOBIN 33 pg (25-35); MEAN CORPUSCULAR HGB CONC 35 g/dL (31-37); MEAN CORPUSCULAR VOLUME 94 fL (79-100); MONO # 0.5 x10^3/uL (0.0-1.1); MONO % 7 % (0-9); NEUT # 5.9 x10^3/uL (1.8-7.7); NEUT % 77 % (31-73); PLATELET COUNT 171 x10^3/uL (140-400); WHITE BLOOD COUNT 7.7 x10^3/uL (4.0-11.0)
--- NOTE | 2020-03-22 18:29 | PHYS DOC ---
Past Medical History Past Medical History: CAD, CHF, Heart Disease, Hypertension, [place] Additional Past Medical Histor: CABG, HIGH CHOLESTEROL,CARDIAC STENTS, PNEUMONIA Past Surgical History: Angioplasty, Appendectomy, Coronary Bypass Surgery, Other Additional Past Surgical Histo: BYPASS X5, STENT PLACEMENT X3, hernia surgery Smoking Status: Current Every Day Smoker Alcohol Use: None Drug Use: None General Adult EDM: Chief Complaint: NEAR SYNCOPE HPI: HPI: Patient is a 69 year old male who presented to ER today for evaluation of feeling dizzy, passing out multiple times yesterday. Patient denies any chest pain, no abdominal pain, no nausea vomiting. Patient denies any cough or fever. Patient has history of coronary artery disease, had multiple stent, somehow he stopped taking his Plavix for a few month. His daughter found out about that and when and got his Plavix and restarted 4 days ago. Patient states since retaking the medication 4 days ago he started having rashes all over his body. Patient denies any throat swelling or any trouble swallowing. Patient denies any local weakness or numbness anywhere. Review of Systems: Review of Systems: Constitutional: Denies fever or chills. [] Eyes: Denies change in visual acuity. [] HENT: Denies nasal congestion or sore throat. [] Respiratory: Denies cough or shortness of breath. [] Cardiovascular: Denies chest pain or edema. [] GI: Denies abdominal pain, nausea, vomiting, bloody stools or diarrhea. [] : Denies dysuria. [] Musculoskeletal: Denies back pain or joint pain. [] Integument: Denies rash. [] Neurologic: Positive for dizziness, syncopal episode. No focal weakness or numbness. Endocrine: Denies polyuria or polydipsia. [] Lymphatic: Denies swollen glands. [] Psychiatric: Denies depression or anxiety. [] Heart Score: Risk Factors: Risk Factors: DM, Current or recent (<one month) smoker, HTN, HLP, family history of CAD, obesity. Risk Scores: Score 0 - 3: 2.5% MACE over next 6 weeks - Discharge Home Score 4 - 6: 20.3% MACE over next 6 weeks - Admit for Clinical Observation Score 7 - 10: 72.7% MACE over next 6 weeks - Early Invasive Strategies Allergies: Allergies: Allergies Coded Allergies Type Severity Reaction Last Updated Verified Interferons Allergy Intermediate PASSED OUT 04/26/19 Yes doxycycline Allergy Intermediate RASH 10/20/19 Yes Physical Exam: PE: Constitutional: Well developed, well nourished, no acute distress, non-toxic appearance. [] HENT: Normocephalic, atraumatic, bilateral external ears normal, oropharynx moist, no oral exudates, nose normal. [] Eyes: PERRLA, EOMI, conjunctiva normal, no discharge. [] Neck: Normal range of motion, no tenderness, supple, no stridor. [] Cardiovascular:Heart rate regular rhythm, no murmur [] Lungs & Thorax: Bilateral breath sounds clear to auscultation [] Abdomen: Bowel sounds normal, soft, no tenderness, no masses, no pulsatile masses. [] Skin: Warm, dry, diffuse maculopapular rash on extremities, trunk and chest area Back: No tenderness, no CVA tenderness. [] Extremities: No tenderness, no cyanosis, no clubbing, ROM intact, no edema. [] Neurologic: Alert and oriented X 3, normal motor function, normal sensory function, no focal deficits noted. [] Psychologic: Affect normal, judgement normal, mood normal. [] Current Patient Data: Labs: Laboratory Tests Test 03/22/20 18:10 White Blood Count 7.7 x10^3/uL Red Blood Count 4.60 x10^6/uL Hemoglobin 15.1 g/dL Hematocrit 43.4 % Mean Corpuscular Volume 94 fL Mean Corpuscular Hemoglobin 33 pg Mean Corpuscular Hemoglobin Concent 35 g/dL Red Cell Distribution Width 15.0 % Platelet Count 171 x10^3/uL Neutrophils (%) (Auto) 77 % Lymphocytes (%) (Auto) 15 % Monocytes (%) (Auto) 7 % Eosinophils (%) (Auto) 1 % Basophils (%) (Auto) 0 % Neutrophils # (Auto) 5.9 x10^3/uL Lymphocytes # (Auto) 1.1 x10^3/uL Monocytes # (Auto) 0.5 x10^3/uL Eosinophils # (Auto) 0.1 x10^3/uL Basophils # (Auto) 0.0 x10^3/uL Prothrombin Time 13.6 SEC Prothromb Time International Ratio 1.1 Activated Partial Thromboplast Time 28 SEC Sodium Level 141 mmol/L Potassium Level 3.3 mmol/L Chloride Level 105 mmol/L Carbon Dioxide Level 27 mmol/L Anion Gap 9 Blood Urea Nitrogen 27 mg/dL Creatinine 1.7 mg/dL Estimated GFR (Cockcroft-Gault) 40.4 BUN/Creatinine Ratio 16 Glucose Level 172 mg/dL Calcium Level 9.4 mg/dL Magnesium Level 2.0 mg/dL Total Bilirubin 1.2 mg/dL Aspartate Amino Transf (AST/SGOT) 29 U/L Alanine Aminotransferase (ALT/SGPT) 26 U/L Alkaline Phosphatase 105 U/L Troponin I Quantitative < 0.017 ng/mL Total Protein 8.3 g/dL Albumin 3.7 g/dL Albumin/Globulin Ratio 0.8 Lipase 147 U/L EKG: EKG: Interpreted by emergency department physician Rhythm:sinus tachycardia Rate: 104 Ectopy:pvc Conduction: pvc ST Segments: no stemi T Waves:t wave inversion in lateral leads Q Waves:in inferior leads Clinical Impression: sinus tachycardia with PVCs Radiology/Procedures: Radiology/Procedures: [] Course & Med Decision Making: Course & Med Decision Making Pertinent Labs and Imaging studies reviewed. (See chart for details) Patient is a 69-year-old male who was evaluated in ER due to dizziness and syncopal episode at home. Patient has some abnormal EKG rhythm on monitor, his potassium level was low, THIS physician recommended to have a CT scan his head and admit him to hospital for further evaluation and treatment but patient declined admission. Patient is awake alert oriented, he is competent to decline medical treatment. Patient's daughter is here to take him home. Patient signed out AGAINST MEDICAL ADVICE. Mary Disclaimer: Mary Disclaimer: This electronic medical record was generated, in whole or in part, using a voice recognition dictation system. Departure Departure Impression: Primary Impression: Syncope Additional Impression: Hypokalemia Disposition: 07 AGAINST MEDICAL ADVICE Condition: STABLE Referrals: NO PCP (PCP) Patient Instructions: Discharge Against Medical Advice Additional Instructions: Patient does not wish to proceed with medical care recommended by Dr. Medina Patient given information related to possible complications, up to and including , which could occur as a result of leaving the hospital at this time. Patient verbalizes understanding of risks involved due to leaving against medical advice. Patient has singned AMA form. Justicifation of Admission Dx: Justifications for Admission: Justification of Admission Dx: N/A MAGDA MEDINA DO Mar 22, 2020 18:29
[2020-03-22 18:35] LABS: PROTHROMBIN TIME PATIENT 13.6 SEC (11.7-14.0)
[2020-03-22 18:41] LABS: CALCIUM 9.4 mg/dL (8.5-10.1); CREATININE 1.7 mg/dL (0.7-1.3); GFR 40.4; POTASSIUM 3.3 mmol/L (3.5-5.1)
[2020-03-22 18:46] LABS: ALBUMIN 3.7 g/dL (3.4-5.0); ALBUMIN/GLOBULIN RATIO 0.8 (1.0-1.7); TOTAL BILIRUBIN 1.2 mg/dL (0.2-1.0); TOTAL PROTEIN 8.3 g/dL (6.4-8.2)
[2020-03-22] MEDS ORDERED: POTASSIUM CHLORIDE 20 MEQ TABLET.ER. PO ONE (19:00)
[2020-03-22 19:09] VITALS: BP 118/58
--- NOTE | 2020-03-23 15:54 | EKG ---
[address] [place] [address] Test Date: 2020-03-22 Test Time: 18:01:37 Pat Name: EVELYNE GRAJEDA Department: Room: Gender: M [employer]: : 1950 Requested By: MAGDA BONILLA Order Number: [id number] Reading MD: Measurements Intervals [place] Rate: 104 P: 0 [place]: 188 QRS: -8 QRSD: 98 T: 162 QT: 360 QTc: 474 Interpretive Statements SINUS TACHYCARDIA COMPLEX(ES) WITH ABERRANT INTRAVENTRICULAR CONDUCTION VENTRICULAR PREMATURE COMPLEX(ES) LEFTWARD AXIS ST & T ABNORMALITY, CONSIDER ANTEROLATERAL ISCHEMIA OR LEFT VENTRICULAR STRAIN ABNORMAL ECG RI6.01 No previous ECG available for comparison
== END 2020-03-22 19:38 | disposition left against medical advice (07) ==
LOC: ER 17:42
DX: R55 Syncope and collapse (principal); E87.6 Hypokalemia; I11.0 Hypertensive heart disease with heart failure; I50.9 Heart failure, unspecified; F17.200 Nicotine dependence, unspecified, uncomplicated; E78.00 Pure hypercholesterolemia, unspecified; I25.2 Old myocardial infarction; I25.10 Atherosclerotic heart disease of native coronary artery without angina pectoris; Z95.5 Presence of coronary angioplasty implant and graft; Z95.1 Presence of aortocoronary bypass graft; Z90.89 Acquired absence of other organs; Z98.890 Other specified postprocedural states; Z88.1 Allergy status to other antibiotic agents; Z88.8 Allergy status to other drugs, medicaments and biological substances
CPT/HCPCS: 36415; 80053; 83690; 83735; 83880; 84484; 85025; 85610; 85730; 93005; 96372; 99284